=== PATIENT | male | born 1980 | race Asian ===

== ENCOUNTER 2017-12-08 02:36 | Emergency (ER) | END 2017-12-08 06:55 | disposition home or self-care (01) ==

== ENCOUNTER 2018-09-30 22:20 | Emergency (ER) | payer OTHER ==
[~2018-09-30] VITALS: Ht 172.7 cm; Wt 91.0 kg
[~2018-09-30 22:20] MED LIST: NAPR-985 PO; OXYC-209 PO; TAMS-14 PO
[2018-09-30 22:28] VITALS: Ht 172.7 cm; Wt 91.0 kg
[2018-10-01] MEDS ORDERED: ANAS1TAB PO (00:11)
[2018-10-01] MEDS ORDERED: ERGO500013 PO (00:11)
[2018-10-01] MEDS ORDERED: ASCO500C7 PO (00:11)
[2018-10-01] MEDS ORDERED: ZINC220C5 PO (00:11)
[2018-10-01] MEDS ORDERED: IBUP-1542 PO (01:23)
--- NOTE | 2018-10-01 01:25 | ERD ---
ER Documentation Chief Complaint Chief Complaint CP WITH LET UPPER BACK PAIN X 3 DAYS HPI This is a very pleasant 30-year-old male who has back pain that wraps around to his chest since he lifted weights on Saturday. No family history of heart problems. No history of hypertension or diabetes. No nausea vomiting fevers or chills. Patient states pain is reproducible to the touch and wraps around his chest. ROS All systems reviewed and are negative except as per history of present illness. Medications Home Meds Active Scripts Ibuprofen* (Motrin*) 600 Mg Tab, 600 MG PO Q6, #30 TAB Prov:MARIBELL PETTYSkyler 10/01/18 Reported Medications Ergocalciferol (Vitamin D2) (VITAMIN D2) 50,000 Unit Capsule, 21462 UNIT PO QMON, CAP 10/01/18 Zinc Sulfate* (Zinc Sulfate*) 220 Mg Cap, 220 MG PO DAILY, CAP 10/01/18 Ascorbic Acid* (Vitamin C*) 500 Mg Capsule.sa, 500 MG PO DAILY, CAP 10/01/18 Anastrozole* (Arimidex*) 1 Mg Tablet, 1 MG PO DAILY, #30 TAB 10/01/18 Discontinued Scripts Tamsulosin Hcl* (Flomax*) 0.4 Mg Cap.er.24h, 0.4 MG PO BID, #30 CAP Prov:ALEX HARDING PA-C 12/08/17 Naproxen* (Naprosyn*) 500 Mg Tablet, 500 MG PO BID PRN for PAIN AND/OR INFLAMMATION, #30 TAB Prov:ALEX HARDING PA-C 12/08/17 Oxycodone HCl/Acetaminophen (Percocet 10-325 mg Tablet) 1 Each Tablet, 1 EACH PO Q6 for 5 Days, #15 TAB Prov:ALEX HARDING PA-C 12/08/17 Allergies Allergies: Coded Allergies: No Known Allergy (Unverified , 10/01/18) PMhx/Soc Medical and Surgical Hx: pt denies Medical Hx, pt denies Surgical Hx Hx Alcohol Use: No Hx Substance Use: No Hx Tobacco Use: No Smoking Status: Never smoker Physical Exam Vitals Vital Signs Date Temp Pulse Resp B/P (MAP) Pulse Ox O2 O2 Flow FiO2 Time Delivery Rate 09/30/18 98.7 78 18 128/73 97 22:28 (91) Physical Exam Const: No acute distress Head: Atraumatic Eyes: Normal Conjunctiva ENT: Normal External Ears, Nose and Mouth. Neck: Full range of motion. No meningismus. Resp: Clear to auscultation bilaterally Cardio: Regular rate and rhythm, no murmurs Abd: Soft, non tender, non distended. Normal bowel sounds Skin: No petechiae or rashes Back: No midline or flank tenderness Ext: No cyanosis, or edema Neur: Awake and alert Psych: Normal Mood and Affect Result Diagram: 09/30/18230609/30/182306 Results 24 hrs Laboratory Tests Test 09/30/18 23:07 White Blood Count 5.8 10^3/ul Red Blood Count 5.13 10^6/ul Hemoglobin 14.7 g/dl Hematocrit 43.3 % Mean Corpuscular Volume 84.4 fl Mean Corpuscular Hemoglobin 28.7 pg Mean Corpuscular Hemoglobin Concent 33.9 g/dl Red Cell Distribution Width 11.7 % Platelet Count 270 10^3/UL Mean Platelet Volume 9.3 fl Immature Granulocytes % 0.500 % Neutrophils % 73.5 % Lymphocytes % 16.0 % Monocytes % 7.4 % Eosinophils % 1.9 % Basophils % 0.7 % Nucleated Red Blood Cells % 0.0 /100WBC Immature Granulocytes # 0.030 10^3/ul Neutrophils # 4.3 10^3/ul Lymphocytes # 0.9 10^3/ul Monocytes # 0.4 10^3/ul Eosinophils # 0.1 10^3/ul Basophils # 0.0 10^3/ul Nucleated Red Blood Cells # 0.0 10^3/ul Sodium Level 140 mmol/L Potassium Level 3.7 mmol/L Chloride Level 102 mmol/L Carbon Dioxide Level 25 mmol/L Anion Gap 13 Blood Urea Nitrogen 17 mg/dl Creatinine 0.88 mg/dl Est Glomerular Filtrat Rate mL/min > 60 mL/min Glucose Level 95 mg/dl Calcium Level 9.7 mg/dl Troponin I < 0.012 ng/ml B-Type Natriuretic Peptide < 11 PG/ML [facility] EKG: Rate/Rhythm: [Normal Sinus Rhythm] QRS, ST, T-waves: [No changes consistent w/ acute ischemia] Impression: [No evidence of ischemia or arrhythmia] chest X-ray 1V Interpreted by me: Soft Tissue: No acute abnormalities Bones: No acute abnormalities Mediastinum/Cardiac Silhouette/Lungs: [No acute abnormalities] Medical decision making: Patient's thoracic symptoms have stabilized while in the department and are stable for outpatient follow up. Exam and work up not consistent w/ ischemia, arrhythmia, PE or dissection. Departure Diagnosis: Primary Impression: Chest pain Chest pain type: unspecified Qualified Codes: R07.9 - Chest pain, unspecified Condition: Stable Patient Instructions: Chest Pain, Uncertain Cause MARIBELL PETTY Oct 01, 2018 01:25
[2018-10-01 02:08] VITALS: BP 108/74; PULSE 59; RESP 15
== END 2018-10-01 02:08 | disposition home or self-care (01) ==
LOC: E/R 22:20
DX: R07.9 Chest pain, unspecified (principal)
CPT/HCPCS: 36415; 71045; 80048; 83880; 84484; 85025; 93005